=== PATIENT | female | born 1965 | race Hispanic/Latino ===

== ENCOUNTER 2023-06-18 17:37 | Inpatient (IN) | payer OTHER, SELFPAY ==
[~2023-06-18] VITALS: Ht 157.5 cm; Wt 59.1 kg
[~2023-06-18 17:37] MED LIST: DICL20GE TP; FAMO20TA8 PO
[2023-06-18 18:40] LABS: BASOPHILS # (AUTO) 0.04 K/uL (0.00-0.20); BASOPHILS % (AUTO) 0.4 % (0.0-5.0); EOSINOPHILS # (AUTO) 0.11 K/uL (0.00-0.70); EOSINOPHILS % (AUTO) 1.2 % (0.0-8.0); HEMATOCRIT 36.6 % (36-48); IMMATURE GRANULOCYTE ABSOLUTE 0.04 K/uL (0-1); LYMPHOCYTES # (AUTO) 0.2 K/uL (1.0-4.8); LYMPHOCYTES % (AUTO) 1.7 % (21.0-51.0); MEAN CORPUSCULAR HEMOGLOBIN 28.5 pg (27.0-33.0); MEAN CORPUSCULAR HGB CONC 34.2 g/dL (32.0-36.0); MEAN CORPUSCULAR VOLUME 83.4 fL (79-99); MONOCYTES # (AUTO) 0.2 K/uL (0.1-1.0); MONOCYTES % (AUTO) 1.9 % (3.0-13.0); NEUTROPHILS % (AUTO) 94.4 % (40.0-77.0); PLATELET COUNT (AUTO) 223 K/uL (130-400); RED BLOOD CELL COUNT(AUTO) 4.39 MIL/uL (4.00-5.50); RED CELL DISTRIBUTION WIDTH 12.8 % (11.0-15.5); WHITE BLOOD COUNT (AUTO) 9.5 K/uL (4.8-10.8)
[2023-06-18 18:48] LABS: APPEARANCE,URINE CLEAR (CLEAR); BILIRUBIN,URINE NEGATIVE (NEGATIVE); COLOR,URINE YELLOW (YELLOW); GLUCOSE, URINE (UA) NEGATIVE (NEGATIVE); KETONES,URINE 40 mg/dL (NEGATIVE); LEUKOCYTE ESTERASE ,URINE 75 Leu/uL (NEGATIVE); NITRATE,URINE NEGATIVE (NEGATIVE); PROTEIN,URINE NEGATIVE (NEGATIVE); UROBILINOGEN,URINE 0.2 mg/dL (0.2-1.0)
[2023-06-18 18:52] LABS: ADD UA MICROSCOPIC YES
[2023-06-18 18:58] LABS: ALBUMIN 3.9 g/dL (3.5-5.0); BILIRUBIN,TOTAL 0.6 mg/dL (0.2-1.0); CREATININE 0.8 mg/dL (0.5-1.5); TOTAL PROTEIN, SERUM 7.7 g/dL (6.0-8.3)
[2023-06-18 19:08] LABS: BACTERIA,URINE RARE /HPF (None Seen); MUCUS,URINE RARE LPF (None Seen); SQUAMOUS EPITHELIAL CELL,UR RARE /HPF (0-2)
[2023-06-18 19:11] LABS: POTASSIUM 2.7 mmol/L (3.5-5.1)
[2023-06-18] MEDS ORDERED: POTASSIUM BICARB/CIT AC 25 MEQ TABLET.EFF PO ONE (21:00)
[2023-06-18] MEDS ORDERED: CEFTRIAXONE 1G VIAL IVPB ONE (21:00)
[2023-06-18] MEDS ORDERED: ASPIRIN 325MG TAB PO ONE (21:30)
[2023-06-18 21:47] LABS: SARS-CoV-2, RNA, NAAT NEGATIVE SARS CoV-2 (NEGATIVE)
[2023-06-18 21:52] LABS: INFLUENZA TYPE A Negative For Type A (NEGATIVE); INFLUENZA TYPE B Negative For Type B (NEGATIVE)
[2023-06-18] MEDS ORDERED: MAGNESIUM 2GM PREMIX 50ML 50 ML IV PRN (22:00)
[2023-06-18] MEDS ORDERED: 0.9% NACL 500ML IV.SOLN 500 ML IV ONE (22:00)
[2023-06-18] MEDS ORDERED: POTASSIUM CHLORIDE 10% ELIXIR 20 MEQ/15 ML UDCUP PO PRN (22:00)
[2023-06-18] MEDS ORDERED: ONDANSETRON 4MG INJ IV PRN (22:00)
[2023-06-18] MEDS ORDERED: MORPHINE 4 MG SYG IV PRN (22:00)
[2023-06-18] MEDS ORDERED: POTASSIUM CHLORIDE 20MEQ/100ML 100 ML IV PRN (22:00)
[2023-06-18] MEDS ORDERED: KCL 20 MEQ ERTAB PO PRN (22:00)
[2023-06-18] MEDS ORDERED: MORPHINE 2 MG SYG IV PRN (22:00)
[2023-06-18] MEDS ORDERED: ACETAMINOPHEN 325 MG TAB PO PRN ×2 (22:00)
[2023-06-18] MEDS: NITROGLYCERIN 1GM OINT 1 INCH/1GM TD SCH (23:54)
[2023-06-19] VITALS (14 sets, daily range): BP systolic 114–137; BP diastolic 61–76; PULSE 63–96; RESP 16–20; O2SAT 98–99
[2023-06-19] MEDS ORDERED: CETI-89 PO (00:37)
[2023-06-19] MEDS ORDERED: LOSA100T59 PO (00:37)
[2023-06-19] MEDS ORDERED: ATOR40TA69 PO (00:37)
[2023-06-19] MEDS ORDERED: CELE-146 PO (00:37)
[2023-06-19] MEDS: IPRATROPIUM/ALBUTEROL SULFATE 3 ML SOLUTION IH SCH ×5 (02:00→23:51)
[2023-06-19] MEDS: NITROGLYCERIN 1GM OINT 1 INCH/1GM TD SCH ×3 (05:29→22:00)
[2023-06-19 05:31] LABS: BASOPHILS # (AUTO) 0.05 K/uL (0.00-0.20); BASOPHILS % (AUTO) 0.5 % (0.0-5.0); EOSINOPHILS # (AUTO) 0.13 K/uL (0.00-0.70); EOSINOPHILS % (AUTO) 1.4 % (0.0-8.0); HEMATOCRIT 32.3 % (36-48); IMMATURE GRANULOCYTE ABSOLUTE 0.04 K/uL (0-1); LYMPHOCYTES # (AUTO) 0.6 K/uL (1.0-4.8); LYMPHOCYTES % (AUTO) 6.7 % (21.0-51.0); MEAN CORPUSCULAR HEMOGLOBIN 28.9 pg (27.0-33.0); MEAN CORPUSCULAR HGB CONC 34.1 g/dL (32.0-36.0); MONOCYTES # (AUTO) 0.4 K/uL (0.1-1.0); PLATELET COUNT (AUTO) 206 K/uL (130-400); RED CELL DISTRIBUTION WIDTH 12.8 % (11.0-15.5); WHITE BLOOD COUNT (AUTO) 9.2 K/uL (4.8-10.8)
[2023-06-19 05:48] LABS: BILIRUBIN,TOTAL 0.4 mg/dL (0.2-1.0); CREATININE 0.7 mg/dL (0.5-1.5); MAGNESIUM 1.9 mg/dL (1.80-2.40); PHOSPHORUS 2.9 mg/dL (2.5-4.9); TOTAL PROTEIN, SERUM 6.5 g/dL (6.0-8.3)
[2023-06-19] MEDS: BUDESONIDE 0.5 MG/2 ML INH IH SCH ×2 (07:17→19:28)
[2023-06-19 08:20] LABS: HEMOGLOBIN A1C 5.3 % (4.0-6.0)
[2023-06-19 08:23] LABS: CHOLESTEROL 123 mg/dL (<200); HDL CHOLESTEROL 71 mg/dL (35-85); LDL DIRECT 50 mg/dL (0-99); TRIGLYCERIDES 93 mg/dL (30-200)
[2023-06-19 09:00] LABS: ABG BASE EXCESS -0.5 mmol/L (-2.0-3.0); ABG HCO3 22.6 mmol/L (21.0-28.0); ABG OXYGEN SATURATION 96.9 % (95.0-99.0); ABG PCO2 33 mmHg (32-45); ABG PH 7.452 (7.35-7.450); PO2, ARTERIAL BG 85.4 mmHg (83.0-108.0); VENT MODE, BG RA (ROOM AIR)
[2023-06-19] MEDS ORDERED: LOSARTAN 100 MG TABLET PO SCH (09:00)
[2023-06-19] MEDS ORDERED: ATORVASTATIN 40 MG TABLET PO SCH ×2 (09:00→21:00)
[2023-06-19] MEDS ORDERED: NON-FORMULARY MEDICATION 1 EACH (Cetirizine HCl (Zyrtec) 10 MG) PO SCH (09:00)
[2023-06-19] MEDS: ASPIRIN 81MG CHEW TAB PO SCH (10:14)
[2023-06-19] MEDS: LOSARTAN 50 MG TABLET PO SCH (10:14)
[2023-06-19] MEDS: FAMOTIDINE 20MG TAB PO SCH ×2 (10:16→20:29)
[2023-06-19] MEDS: CETIRIZINE HCL 5 MG TABLET PO SCH (10:16)
[2023-06-19] MEDS: METOPROLOL TARTRATE 25 MG TAB PO SCH ×2 (10:16→20:28)
[2023-06-19] MEDS: ENOXAPARIN SODIUM 40 MG/0.4 ML SYRINGE SQ SCH (10:18)
[2023-06-19] MEDS ORDERED: ATORVASTATIN 20 MG TABLET PO SCH (21:00)
[2023-06-20] VITALS (9 sets, daily range): BP systolic 121–140; BP diastolic 69–86; PULSE 65–98; RESP 18–20; O2SAT 98
[2023-06-20 04:06] LABS: HEMATOCRIT 32.2 % (36-48); MEAN CORPUSCULAR HEMOGLOBIN 28.5 pg (27.0-33.0); MEAN CORPUSCULAR HGB CONC 33.5 g/dL (32.0-36.0); RED BLOOD CELL COUNT(AUTO) 3.79 MIL/uL (4.00-5.50); RED CELL DISTRIBUTION WIDTH 12.9 % (11.0-15.5); WHITE BLOOD COUNT (AUTO) 6.7 K/uL (4.8-10.8)
[2023-06-20 04:34] LABS: BILIRUBIN,TOTAL 0.2 mg/dL (0.2-1.0); CREATININE 0.8 mg/dL (0.5-1.5); POTASSIUM 4.3 mmol/L (3.5-5.1); TOTAL PROTEIN, SERUM 6.6 g/dL (6.0-8.3)
[2023-06-20] MEDS: NITROGLYCERIN 1GM OINT 1 INCH/1GM TD SCH ×2 (06:00→13:10)
[2023-06-20] MEDS: IPRATROPIUM/ALBUTEROL SULFATE 3 ML SOLUTION IH SCH ×3 (06:00→11:14)
[2023-06-20] MEDS: BUDESONIDE 0.5 MG/2 ML INH IH SCH (06:52)
[2023-06-20] MEDS ORDERED: LOSA-418 PO (09:02)
[2023-06-20] MEDS ORDERED: ASPI-1005 PO (09:02)
[2023-06-20] MEDS ORDERED: Cetirizine Hcl 5 Mg Tablet PO (09:02)
[2023-06-20] MEDS ORDERED: METO25 PO (09:02)
[2023-06-20] MEDS ORDERED: ATOR40TA69 PO (09:02)
[2023-06-20] MEDS: ASPIRIN 81MG CHEW TAB PO SCH (09:07)
[2023-06-20] MEDS: LOSARTAN 50 MG TABLET PO SCH (09:07)
[2023-06-20] MEDS: ENOXAPARIN SODIUM 40 MG/0.4 ML SYRINGE SQ SCH (09:07)
[2023-06-20] MEDS: CETIRIZINE HCL 5 MG TABLET PO SCH (09:07)
[2023-06-20] MEDS: METOPROLOL TARTRATE 25 MG TAB PO SCH (09:07)
[2023-06-20] MEDS: FAMOTIDINE 20MG TAB PO SCH (09:07)
[2023-06-20] MEDS ORDERED: CEPH500C2 PO (10:46)
[2023-06-20] MEDS ORDERED: CEFTRIAXONE 1G VIAL IVPB ONE ×2 (11:00→13:00)
== END 2023-06-20 18:27 | disposition home or self-care (01) | DRG 690 ==
LOC: EDH 17:37 → EDHIP 17:38 → 2AH 22:30
PROVIDERS: ADMIT Internal Medicine; ATTEND Internal Medicine
DX: N39.0 Urinary tract infection, site not specified (principal); E87.6 Hypokalemia; E78.5 Hyperlipidemia, unspecified; G43.909 Migraine, unspecified, not intractable, without status migrainosus; G89.29 Other chronic pain; K21.9 Gastro-esophageal reflux disease without esophagitis; I10 Essential (primary) hypertension; R07.89 Other chest pain; J45.909 Unspecified asthma, uncomplicated; Z59.7 Insufficient social insurance and welfare support; Z75.3 Unavailability and inaccessibility of health-care facilities; Z79.51 Long term (current) use of inhaled steroids; Z79.82 Long term (current) use of aspirin; Z88.8 Allergy status to other drugs, medicaments and biological substances
CPT/HCPCS: 36415; 36600; 76705; 80053; 80061; 81001; 82803; 83036; 83605; 83735; 83880; 84100; 84132; 84484; 85025; 85027; 87040; 87077; 87088; 87186; 87635; 87804; 93005; 93306; 94640; 94664; G0378; J0696; J1650

== ENCOUNTER 2025-01-10 23:11 | Emergency (ER) | payer BC ==
[~2025-01-10] VITALS: Ht 157.5 cm; Wt 57.2 kg
[~2025-01-10 23:11] MED LIST changes: +ASPI-1005 PO; +ATOR40TA69 PO; +CELE-146 PO; +CEPH500C2 PO; +CETI-89 PO; +Cetirizine Hcl 5 Mg Tablet PO; -DICL20GE TP; -FAMO20TA8 PO; +LOSA-418 PO; +LOSA100T59 PO; +METO25 PO
[2025-01-10 23:35] LABS: APPEARANCE,URINE CLEAR (CLEAR); GLUCOSE, URINE (UA) NEGATIVE (NEGATIVE); LEUKOCYTE ESTERASE ,URINE 500 Leu/uL (NEGATIVE); NITRATE,URINE NEGATIVE (NEGATIVE); OCCULT BLOOD,URINE +- (TRACE) (NEGATIVE)
[2025-01-10 23:37] LABS: ADD UA MICROSCOPIC YES
[2025-01-10 23:38] LABS: RAPID GROUP A STREP negative (NEGATIVE)
[2025-01-10 23:39] LABS: SQUAMOUS EPITHELIAL CELL,UR RARE /HPF (0-2)
--- NOTE | 2025-01-10 23:40 | ERN ---
ED Note History of Present Illness Stated Complaint: C/O LOWER BACK PAIN,LOWER ABD PAIN,VOIDING LESS Chief Complaint: Multiple Complaints Time Seen by MD: 23:25 Dictation: 59-year-old female presents to ER complaints of cough, congestion, generalized muscle aches, lower abdominal pain and back pain. He denies fever vomiting or diarrhea. Allergies: Coded Allergies: No Known Allergies (Unverified Allergy, Unknown, 03/06/22) Home Meds Active Scripts Cephalexin (Cephalexin) 500 Mg Tablet, 1 TAB PO TID for 10 Days, #30 TAB 0 Refills Prov:MELVIN KING [employer] 01/11/25 Cephalexin (Cephalexin) 500 Mg Capsule, 500 MG PO Q12H, #14 CAP 0 [facility]23 Metoprolol Tartrate (Lopressor) 25 Mg Tab, 12.5 MG PO BID, #60 TAB 0 Refills Prov:[facility] 06/20/23 Losartan Potassium (Cozaar) 50 Mg Tablet, 50 MG PO DAILY, #30 TAB 0 Refills Prov:JACOB PAZ [facility] 06/20/23 [Cetirizine Hcl 5 Mg Tablet] 5 MG TABLET No Conflict Check, 10 MG PO DAILY, #30 0 Refills Prov:JACOB PAZGERALDINE 06/20/23 Atorvastatin Calcium (LIPITOR) 40 Mg Tablet, 40 MG PO HS, #30 TAB 0 Refills Prov:JACOB PAZ [facility] 06/20/23 Aspirin (ASPIRIN 81MG CHEW TAB) 81 Mg Tab.chew, 81 MG PO DAILY, #30 TAB.CHEW 0 Refills Prov:JACOB PAZGERALDINE 06/20/23 Reported Medications Cetirizine HCl (Zyrtec) 10 Mg Tablet, 10 MG PO DAILY, TAB 06/19/23 Losartan Potassium (Losartan Potassium) 100 Mg Tablet, 100 MG PO DAILY, TAB 06/19/23 Atorvastatin Calcium (LIPITOR) 40 Mg Tablet, 40 MG PO DAILY, TAB 06/19/23 Celecoxib (Celecoxib) 100 Mg Capsule, 100 MG PO DAILY, CAP 06/19/23 Past Medical History Past Medical History: High Cholesterol, Hypertension, Other Additional Past Medical Hx: HX OF SCOLIOSIS Surgical History: Social History: Negative Review of System Dictation Constitutional: Negative for fever,chills, and weight loss. Positive body aches Eyes: Negative for injury, pain,redness, and discharge ENT: Negative for injury,pain or swelling Cardiovascular: Negative for chest pain, palpitations, and edema Respiratory: Negative for shortness of breath, wheezing, and pleuritic chest pain. positive cough Abdomen/GI: Negative for abdominal pain, nausea, vomiting, diarrhea, and constipation Back: Negative for injury and pain : Negative for injury, bleeding and discharge. Positive pelvic pain MS/Extremity: Negative for injury and deformity Skin: Negative for rash, and discoloration Neuro: Negative for headache, weakness, numbness, tingling, and seizure Psych: Negative for suicide ideation, homicidal ideation, and hallucinations Allergy/Immunology: Negative for hives, rash, and allergies Initial Vital Sign VS Vital Signs Date Time Temp Pulse Resp B/P (MAP) Pulse Ox O2 Delivery O2 Flow Rate FiO2 01/10/25 23:16 98.4 62 20 148/65 97 Room Air 01/10/25 23:50 0 21 Physical Exam Dictation General: awake, alert, NAD Head/Face: Normocephalic, atraumatic Eyes: PERRL, EOMI, vision at baseline ENT: oral cavity clear, TMs clear, no signs of infection Neck: Trachea midline, supple, no nuchal rigidity Cardiovascular: RRR, normal S1/S2, No MRGs, no JVD Respiratory: CTAB, no respiratory distress, No rales or wheezes Abdomen: Soft, non-tender, non-distended, normal bowel sounds, no guarding or rebound. Skin: Warm, dry, normal turgor, no rash MS/Extremity: Pulses equal, no cyanosis, neurovascular intact, FROM Neuro: COAx4, GCS 15, strength 5/5, CN 2-12 intact, normal cerebellar exam, normal gait, Psych: Normal behavior, mood, and affect normal Results (Laboratory/Radiology) Laboratory/Radiology Laboratory Tests Test 01/10/25 23:08 Urine Color LIGHT-YELLOW (YELLOW) Urine Appearance CLEAR (CLEAR) Urine pH 7.0 (5.0-8.0) Urine Specific [place] 1.022 (1.001-1.031) Urine Protein NEGATIVE mg/dL (NEGATIVE) Urine Glucose (UA) NEGATIVE mg/dL (NEGATIVE) Urine Ketones NEGATIVE mg/dL (NEGATIVE) Urine Occult Blood +- (TRACE) (NEGATIVE) H Urine Nitrate NEGATIVE (NEGATIVE) Urine Bilirubin NEGATIVE mg/dL (NEGATIVE) Urine Urobilinogen 0.2 mg/dL (0.2-1.0) Urine Leukocyte Esterase 500 Christiano/uL (NEGATIVE) H Urine RBC 6-10 /HPF (0-1) H Urine WBC 11-25 /HPF (0-1) H Urine Squamous Epithelial Cells RARE /HPF (0-2) Urine Transitional Epithelial Cells RARE /HPF (None Seen) Urine Bacteria None /HPF (None Seen) Influenza Type A Antigen Negative For Type A Influenza Type B Antigen Negative For Type B SARS-CoV-2, RNA, NAAT POSITIVE SARS CoV-2 Group A Streptococcus Rapid negative (NEGATIVE) ED Course ED Course Orders Procedure Category Date Status Time Covid Rna Naat LAB 01/10/25 Complete 23:14 Influenza Type A & B, LAB 01/10/25 Complete Rapid 23:14 Rapid (Group A Strep) LAB 01/10/25 Complete 23:14 Urinalysis Profile LAB 01/10/25 Complete 23:14 Culture Urine LAVERNE 01/10/25 In Process 23:39 Chest 1vw RAD 01/10/25 Taken 23:37 Ceftriaxone 1g Vial PHA 01/11/25 Complete (Rocephine 1g Inj) 00:00 Current Medications Medications (Trade) Dose Ordered Sig/Tory Route PRN Reason Start Time Stop Time Status Last Admin Dose Admin Ceftriaxone Sodium (ROCEphine 1G INJ) 1 gm ONCE ONCE IM 01/11/25 00:00 01/11/25 00:01 DC 01/11/25 00:06 Vital Signs Date Time Temp Pulse Resp B/P (MAP) Pulse Ox O2 Delivery O2 Flow Rate FiO2 01/10/25 23:50 98.8 75 18 128/66 98 Room Air* 0 21 01/10/25 23:16 98.4 62 20 148/65 97 Room Air Medical Decision Making MDM A 14 points ROS done, pertinent positive and negatives described in HPI; all others negative. TIME WAS SPENT ON COUNSELING, REVIEWING MEDICAL RECORDS, REVIEWING THE ENTIRE VISIT DOCUMENTATION (INCLUDING ANY COMMENTS THAT MAY HAVE BEEN GIVEN BY THE PATIENT i.e. THE REVIEW OF SYSTEMS) AND COORDINATION OF CARE Patient lab results positive for COVID. Patient will be discharged with viral illness, COVID. Patient advised to take Tylenol and Motrin for fever and pain control. We will send medication for cough congestion and antibiotic to treat a UTI she was positive for today. Patient VSS, NAD, nontoxic, stable for discharge. Pt given discharge instructions in layman terms and understood, all questions answered. Pt will follow up with PCP and return to the ER if worse. DX & DISP Disposition: Discharge Departure Impression: Primary Impression: UTI (urinary tract infection) Additional Impressions: COVID, Viral illness, Cough Condition: Stable Scripts D-Methorphan Hb/P-Epd HCl/Bpm (Bromfed Dm Cough Syrup) 2 Mg-30 Mg-10 Mg/5 Ml Syrup 10 ML PO Q8H for cough and congestion, #300 ML Prov: MELVIN KING NP 01/11/25 Cephalexin (Cephalexin) 500 Mg Tablet 1 TAB PO TID for 10 Days, #30 TAB 0 Refills Prov: MELVIN KING NP 01/11/25 Additional Instructions: FOLLOW-UP WITH YOUR PCP IN 24-72 HOURS AND IN THE EVENT IF SYMPTOMS WORSEN OR AN EMERGENCY OVERNIGHT REPORT TO THE ED IMMEDIATELY Referrals: NONE (PCP) MELVIN KING NP Jan 10, 2025 23:40
[2025-01-10 23:47] LABS: INFLUENZA TYPE A Negative For Type A (NEGATIVE); INFLUENZA TYPE B Negative For Type B (NEGATIVE)
[2025-01-10 23:50] VITALS: BP 128/66; PULSE 75; RESP 18; TEMP 98.7; O2SAT 98
[2025-01-10 23:51] LABS: SARS-CoV-2, RNA, NAAT POSITIVE SARS CoV-2 (NEGATIVE)
[2025-01-11] MEDS ORDERED: CEPH500T PO (00:27)
[2025-01-11] MEDS ORDERED: BROM118S48 PO (00:30)
--- NOTE | 2025-01-11 00:38 | HMCIMG ---
EXAM: CR Chest, 1 view CLINICAL HISTORY: Shortness of breath. Cough. COMPARISON: None provided. FINDINGS: The lungs show no infiltrates or other acute findings. No pleural effusion or pneumothorax. The cardiomediastinal silhouette is within normal limits. No acute osseous abnormality. Mild levoscoliosis of the thoracic spine. IMPRESSION: No acute cardiopulmonary process is evident. /[place]
== END 2025-01-11 01:15 | disposition home or self-care (01) ==
LOC: EDH 23:11
DX: U07.1 COVID-19 (principal); N39.0 Urinary tract infection, site not specified; B34.9 Viral infection, unspecified; R05.9 Cough, unspecified; E78.00 Pure hypercholesterolemia, unspecified; I10 Essential (primary) hypertension; Z79.1 Long term (current) use of non-steroidal anti-inflammatories (NSAID); Z79.82 Long term (current) use of aspirin; Z79.899 Other long term (current) drug therapy
CPT/HCPCS: 99284; 71045; 87635; 87086; 87880; 87804 ×2; 81001; 96372; J0696

== ENCOUNTER 2025-05-17 18:20 | Emergency (ER) | payer BC ==
[~2025-05-17] VITALS: Ht 157.5 cm; Wt 57.2 kg
[~2025-05-17 18:20] MED LIST changes: +BROM118S48 PO; +CEPH500T PO
[2025-05-17 18:56] LABS: ADD UA MICROSCOPIC YES; APPEARANCE,URINE CLEAR (CLEAR); GLUCOSE, URINE (UA) NEGATIVE (NEGATIVE); LEUKOCYTE ESTERASE ,URINE NEGATIVE Leu/uL (NEGATIVE); NITRATE,URINE NEGATIVE (NEGATIVE); OCCULT BLOOD,URINE +- (TRACE) (NEGATIVE)
--- NOTE | 2025-05-17 19:00 | ERN ---
ED Note History of Present Illness Stated Complaint: BURNING WHEN URINATING, RIGHT SHOULDER PAIN Chief Complaint: Painful Urination Time Seen by MD: 18:30 Dictation: 59-YEAR-OLD FEMALE WITH HISTORY OF SCOLIOSIS PRESENTS TO ER COMPLAINTS OF RIGHT SHOULDER PAIN AND LOWER BACK PAIN X3 DAYS. PATIENT STATES SHE HAD A SLIP AND FALL 3 DAYS AGO. PATIENT ALSO STATES SHE HAS HISTORY OF SCOLIOSIS. PATIENT A LSO STATES SHE HAS HAD URINARY SYMPTOMS FOR 1 WEEK. DENIES ANY FEVER. Allergies: Coded Allergies: No Known Allergies (Unverified Allergy, Unknown, 03/06/22) Home Meds Active Scripts D-Methorphan Hb/P-Epd HCl/Bpm (Bromfed Dm Cough Syrup) 2 Mg-30 Mg-10 Mg/5 Ml Syrup, 10 ML PO Q8H for cough and congestion, #300 ML Prov:MELVIN KING [facility] 01/11/25 Cephalexin (Cephalexin) 500 Mg Tablet, 1 TAB PO TID for 10 Days, #30 TAB 0 Refills Prov:MELVIN KING [facility] 01/11/25 Cephalexin (Cephalexin) 500 Mg Capsule, 500 MG PO Q12H, #14 CAP 0 Refills Prov:JACOB PAZ [facility] 06/20/23 Metoprolol Tartrate (Lopressor) 25 Mg Tab, 12.5 MG PO BID, #60 TAB 0 [facility]ills [facility] 06/20/23 Losartan Potassium (Cozaar) 50 Mg Tablet, 50 MG PO DAILY, #30 TAB 0 Refills Prov:JACOB PAZ [facility] 06/20/23 [Cetirizine Hcl 5 Mg Tablet] 5 MG TABLET No Conflict Check, 10 MG PO DAILY, #30 0 Refills Prov:JACOB PAZ [facility] 06/20/23 Atorvastatin Calcium (LIPITOR) 40 Mg Tablet, 40 MG PO HS, #30 TAB 0 Refills [facility] 06/20/23 Aspirin (ASPIRIN 81MG CHEW TAB) 81 Mg Tab.chew, 81 MG PO DAILY, #30 TAB.CHEW 0 Refills Prov:JACOB PAZ [facility] 06/20/23 Reported Medications Cetirizine HCl (Zyrtec) 10 Mg Tablet, 10 MG PO DAILY, TAB 06/19/23 Losartan Potassium (Losartan Potassium) 100 Mg Tablet, 100 MG PO DAILY, TAB 06/19/23 Atorvastatin Calcium (LIPITOR) 40 Mg Tablet, 40 MG PO DAILY, TAB 06/19/23 Celecoxib (Celecoxib) 100 Mg Capsule, 100 MG PO DAILY, CAP 06/19/23 Past Medical History Past Medical History: High Cholesterol, Hypertension, Other Additional Past Medical Hx: HX OF SCOLIOSIS Surgical History: Social History: Negative Review of System Dictation CONSTITUTIONAL: NEGATIVE FOR FEVER,CHILLS, AND WEIGHT LOSS EYES: NEGATIVE FOR INJURY, PAIN,REDNESS, AND DISCHARGE ENT: NEGATIVE FOR INJURY,PAIN OR SWELLING CARDIOVASCULAR: NEGATIVE FOR CHEST PAIN, PALPITATIONS, AND EDEMA RESPIRATORY: NEGATIVE FOR SHORTNESS OF BREATH, COUGH, WHEEZING, AND PLEURITIC CHEST PAIN ABDOMEN/GI: NEGATIVE FOR ABDOMINAL PAIN, NAUSEA, VOMITING AND DIARRHEA. BACK: + BACK PAIN AND INJURY : + URINARY FREQUENCY MS/EXTREMITY: + RIGHT SHOUDLER PAIN AND INJURY SKIN: NEGATIVE FOR RASH, AND DISCOLORATION NEURO: NEGATIVE FOR HEADACHE, WEAKNESS, NUMBNESS, TINGLING, AND SEIZURE PSYCH: NEGATIVE FOR SUICIDE IDEATION, HOMICIDAL IDEATION, AND HALLUCINATIONS ALLERGY/IMMUNOLOGY: NEGATIVE FOR HIVES, RASH, AND ALLERGIES ALL SYSTEMS NEGATIVE, EXCEPT NOTED ABOVE. 13 POINT REVIEW OF SYSTEMS ASSESSED AND ALL NEGATIVE EXCEPT FOR ABOVE. Initial Vital Sign VS Vital Signs Date Time Temp Pulse Resp B/P (MAP) Pulse Ox O2 Delivery O2 Flow Rate FiO2 05/17/25 18:21 98.2 83 16 135/79 99 Room Air 05/17/25 20:07 0 21 Physical Exam Dictation GENERAL: AWAKE, ALERT, NAD HEAD/FACE: NORMOCEPHALIC, ATRAUMATIC EYES: PERRL, EOMI, VISION AT BASELINE ENT: ORAL CAVITY CLEAR, TMS CLEAR, NO SIGNS OF INFECTION NECK: TRACHEA MIDLINE, SUPPLE, NO NUCHAL RIGIDITY CARDIOVASCULAR: RRR, NORMAL NO JVD RESPIRATORY: CTAB, NO RESPIRATORY DISTRESS, NO RALES OR WHEEZES ABDOMEN: SOFT, NON-TENDER, NON-DISTENDED, NORMAL BOWEL SOUNDS, NO GUARDING OR REBOUND. SKIN: WARM, DRY, NORMAL TURGOR, NO RASH MS/EXTREMITY: PULSES EQUAL, NO CYANOSIS, NEUROVASCULAR INTACT, PAIN WITH ROM TO RIGHT SHOULDER NEURO: COAX4, GCS 15, STRENGTH 5/5, CN 2-12 INTACT, NORMAL CEREBELLAR EXAM, NORMAL GAIT, PSYCH: NORMAL BEHAVIOR, MOOD, AND AFFECT NORMAL WITH Results (Laboratory/Radiology) Laboratory/Radiology Laboratory Tests Test 05/17/25 18:47 Urine Color YELLOW (YELLOW) Urine Appearance CLEAR (CLEAR) Urine pH 5.0 (5.0-8.0) Urine Specific [place] 1.033 (1.001-1.031) Urine Protein 10 mg/dL (NEGATIVE) H Urine Glucose (UA) NEGATIVE mg/dL (NEGATIVE) Urine Ketones 5 mg/dL (NEGATIVE) H Urine Occult Blood +- (TRACE) (NEGATIVE) H Urine Nitrate NEGATIVE (NEGATIVE) Urine Bilirubin NEGATIVE mg/dL (NEGATIVE) Urine Urobilinogen 2.0 mg/dL (0.2-1.0) H Urine Leukocyte Esterase NEGATIVE Christiano/uL Urine RBC 2-5 /HPF (0-1) H Urine WBC 2-5 /HPF (0-1) H Urine Bacteria None /HPF (None Seen) X-RAY Comment: PATIENT: SHAYNE BAER MR#: [id number] : 1965 SEX: F AGE: 59 LOCATION: [facility] ORDER 38 STATUS: REG ER REPORT#: [id number] SERVICE 36 REASON: PAIN ORDERING PHYSICIAN: MELVIN KING PROCEDURE: SHOL 2V RT - SHOULDER COMP 2+VWS RT EXAM: CR right Shoulder, 2 View. CLINICAL HISTORY: PAIN COMPARISON: None provided. FINDINGS: BONES: No acute fracture or aggressive appearing osseous lesion. JOINTS: No dislocation. The joint spaces are normal. SOFT TISSUES: The soft tissues are unremarkable. IMPRESSION: No acute abnormality evident on examination of the right shoulder. No acute fracture or dislocation. /[place] DICTATED BY: JUAN GUTIERREZ MD DATE: 05/17/252130 ELECTRONICALLY SIGNED BY: JUAN GUTIERREZ MD DATE: 05/17/252130 PATIENT: SHAYNE BAER MR#: [id number] : 1965 SEX: F AGE: 59 LOCATION: [facility] ORDER 38 STATUS: REG ER [facility] REPORT#: [id number] SERVICE 36 REASON: PAIN ORDERING PHYSICIAN: MELVIN KING PROCEDURE: LUMB 2 3VW - LUMBAR SPINE 2-3VWS EXAM: CR Lumbar Spine, 2 View. CLINICAL HISTORY: PAIN COMPARISON: None provided. FINDINGS: BONES: Rotoscoliosis of spine. Grade 1 anterolisthesis of L5 on S1. ALIGNMENT: Alignment is within normal limits. No significant scoliosis. DISCS / DEGENERATIVE CHANGES: Mild degenerative change spine. SOFT TISSUES: The soft tissues are unremarkable. IMPRESSION: 1. Rotoscoliosis of the lumbar spine. 2. Grade 1 anterolisthesis of L5 on S1. 3. Mild degenerative changes of the lumbar spine. /[place] DICTATED BY: MENDEL KWON MD DATE: 05/17/252145 ELECTRONICALLY SIGNED BY: MENDEL KWON MD DATE: 05/17/252145 ED Course ED Course Orders Procedure Category Date Status Time Shoulder Comp 2+Vws Rt RAD 05/17/25 Resulted 18:37 Lumbar Spine 2-3vws RAD 05/17/25 Resulted 18:37 Urinalysis Profile LAB 05/17/25 Complete 18:37 Vital Signs Date Time Temp Pulse Resp B/P (MAP) Pulse Ox O2 Delivery O2 Flow Rate FiO2 05/17/25 20:07 98.2 83 16 135/79 99 Room Air* 0 21 05/17/25 18:21 98.2 83 16 135/79 99 Room Air Medical Decision Making MDM MDM: DIFFERENTIAL DIAGNOSIS: SPRAIN, STRAIN, CONTUSION, SCOLIOSIS, UTI, PYELONEPHRITIS RATIONALE: TESTS CONSIDERED AND ORDERED SECONDARY TO SHARED DECISION MAKING INCLUDE: LABS, ECG AND RADIOLOGY PREVIOUS OUTSIDE RECORDS REVIEWED: OLD ER VISITS. RISK OF COMPLICATION AND/OR MORBIDITY OR MORTALITY OF PATIENT MANAGEMENT: NONE MEDICATIONS-PER MEDICATION RECONCILIATION NEED FOR HOSPITALIZATION: PATIENT DOES NOT MEET CRITERIA FOR HOSPITALIZATION. NEED FOR EMERGENCY MAJOR/MINOR SURGERY: NO THERE ARE NO SOCIAL CONCERNS WITH THIS PATIENT. PRESCRIPTION DRUG MANAGEMENT PRESCRIPTIONS WILL INCLUDE SYMPTOMATIC CARE PATIENT'S PRIOR EXTERNAL MEDICAL RECORDS FROM OTHER ER VISITS WERE REVIEWED BY ME INDICATED. PRIOR TESTING AND RESULTS FROM PREVIOUS VISITS WERE REVIEWED. PRIOR TESTS WERE TAKEN INTO ACCOUNT WITH MEDICAL DECISION MAKING AND RESOURCE UTILIZATION, INDEPENDENT HISTORIAN/HISTORIANS WERE USED TO OBTAIN COMPLETE MEDICAL HISTORY. I INDEPENDENTLY INTERPRETED THE TEST THAT WERE PERFORMED, RESULTS WERE REVIEWED BY ME AND CONSIDERED FINDINGS ON RADIOLOGY IF ORDERED. NEGATIVE FOR ANY FRACTURES. URINALYSIS WITH TRACE BLOOD NOTED. PATIENT ADVISED SHE COULD HAVE A SMALL KIDNEY STONE THAT MAY BE GIVING HER THE BACK PAIN SHE IS CONFUSING IT WITH HER SCOLIOSIS HOWEVER AT THIS TIME ADVISED TO INCREASE FLUID INTAKE. WE WILL STILL GIVE ANTIBIOTICS TO PREVENT URINE INFECTION DUE TO SMALL WBCS NOTED IN URINE. DX & DISP Disposition: Discharge Departure Impression: Primary Impression: UTI (urinary tract infection) Additional Impressions: Muscle strain, Fall, Back pain, Shoulder pain, Contusion Condition: Stable Scripts Nitrofurantoin Macrocrystal (Macrodantin) 100 Mg Cap 1 CAP PO BID for 10 Days, #20 CAP 0 Refills Prov: MELVIN KING 05/17/25 Ibuprofen (Ibuprofen) 600 Mg Tablet 600 MG PO Q6H PRN for PAIN, #15 TAB Prov: MELVIN KING 05/17/25 Additional Instructions: FOLLOW-UP WITH YOUR PCP IN 24-72 HOURS AND IN THE EVENT IF SYMPTOMS WORSEN OR AN EMERGENCY OVERNIGHT REPORT TO THE ED IMMEDIATELY Referrals: DAVID SORIANO MD (PCP) MELVIN KING May 17, 2025 19:00
--- NOTE | 2025-05-17 20:32 | HMCIMG ---
EXAM: CR right Shoulder, 2 View. CLINICAL HISTORY: PAIN COMPARISON: None provided. FINDINGS: BONES: No acute fracture or aggressive appearing osseous lesion. JOINTS: No dislocation. The joint spaces are normal. SOFT TISSUES: The soft tissues are unremarkable. IMPRESSION: No acute abnormality evident on examination of the right shoulder. No acute fracture or dislocation. /[place]
--- NOTE | 2025-05-17 20:46 | HMCIMG ---
EXAM: CR Lumbar Spine, 2 View. CLINICAL HISTORY: PAIN COMPARISON: None provided. FINDINGS: BONES: Rotoscoliosis of spine. Grade 1 anterolisthesis of L5 on S1. ALIGNMENT: Alignment is within normal limits. No significant scoliosis. DISCS / DEGENERATIVE CHANGES: Mild degenerative change spine. SOFT TISSUES: The soft tissues are unremarkable. IMPRESSION: 1. Rotoscoliosis of the lumbar spine. 2. Grade 1 anterolisthesis of L5 on S1. 3. Mild degenerative changes of the lumbar spine. /[place]
[2025-05-17] MEDS ORDERED: NITR-108 PO (21:05)
[2025-05-17] MEDS ORDERED: IBUP-1492 PO (21:05)
[2025-05-17 21:51] VITALS: BP 128/72; PULSE 78; RESP 16; TEMP 98.2; O2SAT 99
== END 2025-05-17 21:52 | disposition home or self-care (01) ==
LOC: EDH 18:20
DX: S39.012A Strain of muscle, fascia and tendon of lower back, initial encounter (principal); S40.011A Contusion of right shoulder, initial encounter; N39.0 Urinary tract infection, site not specified; E78.00 Pure hypercholesterolemia, unspecified; I10 Essential (primary) hypertension; M41.9 Scoliosis, unspecified; Z79.1 Long term (current) use of non-steroidal anti-inflammatories (NSAID); Z79.82 Long term (current) use of aspirin; Z79.899 Other long term (current) drug therapy; W01.0XXA Fall on same level from slipping, tripping and stumbling without subsequent striking against object, initial encounter; Y93.89 Activity, other specified; Y92.89 Other specified places as the place of occurrence of the external cause; Y99.8 Other external cause status
CPT/HCPCS: 72100; 73030; 81001; 99283